=== PATIENT | female | born 1960 | race Caucasian/White ===

== ENCOUNTER 2016-10-02 06:20 | Day surgery (SDC) | payer BC ==
[2016-09-27 10:35] LABS: BASOPHILS 0.6 %; BASOPHILS ABSOLUTE 0.04 10/3/uL (0.0-0.16); EOSINOPHILS 2.9 %; HEMATOCRIT 42.7 % (36.0-48.0); HEMOGLOBIN 14.6 g/dL (12.0-16.0); IMMATURE GRANULOCYTES 0.1 %; IMMATURE GRANULOCYTES ABSOLUTE 0.01 10/3/uL (0.0-0.11); LYMPHOCYTES 26.8 %; LYMPHOCYTES ABSOLUTE 1.83 10/3/uL (0.67-4.30); MEAN CORPUS HGB CONC 34.2 g/dL (32.0-36.0); MEAN CORPUSCULAR HEMOGLOB 33.4 pg (26.0-34.0); MEAN CORPUSCULAR VOLUME 97.7 fL (80-100); MEAN PLATELET VOLUME 10.2 fL (9.2-13.0); MONOCYTES 7.9 %; MONOCYTES ABSOLUTE 0.54 10/3/uL (0.21-1.20); NEUTROPHILS 61.7 %; PLATELET COUNT 263 10/3/uL (150-400); RBC DISTRIBUTION WIDTH 12.8 % (12.0-16.0); RED CELL COUNT 4.37 10/6/uL (4.0-5.6); WHITE BLOOD CELLS 6.8 10/3/uL (4.5-10.5)
[2016-09-27 10:36] LABS: MANUAL DIFF NO %
[2016-09-27 10:46] LABS: BUN (BLOOD UREA NITROGEN) 18 MG/DL (6-23); CALCIUM, SERUM 8.6 MG/DL (8.5-10.4); CHLORIDE, SERUM 108 MMOL/L (96-112); CO2 (CARBON DIOXIDE) 27 MMOL/L (24-34); CREATININE 0.94 MG/DL (0.55-1.02); GFR AFRICAN AMERICAN 78 ML/MIN (>=60); GFR NON AFRICAN AMERICAN 67 ML/MIN (>=60); GLUCOSE, SERUM 102 MG/DL (60-99); SODIUM, SERUM 143 MMOL/L (135-148)
[2016-09-27 10:51] LABS: ASCORBIC ACID (UR NOT ORDER) 40 (NEG); BILIRUBIN, URINE NEGATIVE (NEG); KETONE, URINE TRACE MG/DL (NEG); LEUKOCYTE ESTERASE(NOT OR NEG (NEG); WBC (NOT ORDERED) (RFLEX) 1 (0-5)
--- NOTE | ~2016-10-02 | OP ---
Record Of [facility] [address] [place]. [address] NAME: CANDIDO RENO : 56 STATUS : [facility]#: [id number] AGE: 56 ADM/REG DATE : 10/02/16 MR#: [id number] REPORT SERV DATE: 10/08/16 DICTATED BY: AMOS BANERJEE DATE: 10/08/16 REPORT STATUS : Draft TRANSCRIBED BY: MODL DATE: 10/08/16 DATE OF PROCEDURE: 10/02/2016 PREOPERATIVE DIAGNOSIS: Postmenopausal bleeding. POSTOPERATIVE DIAGNOSIS: Postmenopausal bleeding. PROCEDURE: Hysteroscopy with dilation and curettage. CPT code 78426. ANESTHESIA: General. ESTIMATED BLOOD LOSS: Less than 10 mL. DRAINS: None. FINDINGS: Relatively atrophic endometrium with no dominant masses or evidence of significant hyperplasia. PATHOLOGY: Endometrial curettings. COMPLICATIONS: None. POSTOPERATIVE PLAN: Extubate extubated to PACU. PROCEDURE IN DETAIL: After informed consent was signed, the patient was taken to the operating room, and placed in dorsal supine position, where adequate general anesthesia was administered. She was then placed in dorsal lithotomy position in Raghu stirrups, and prepped and draped in the usual fashion. Exam under anesthesia was performed with normal findings. The uterus was sounded, cervix was dilated, and the hysteroscope was placed through the endocervical canal into the endometrium, where the uterine cavity was distended with appropriate media. Findings as above were noted. The hysteroscope was then removed, and the cervix was dilated further with four quadrant sharp curettings performed. Excellent hemostasis was noted. The patient was placed back in dorsal supine position, awakened, extubated, and sent to the PACU in stable condition. TB/BEN os Banerjee MD / [id number] CC: Amos Banerjee MD Record Of [facility] [address] [place]. [address] NAME: CANDIDO RENO : 56 STATUS : [facility]#: [id number] AGE: 56 ADM/REG DATE : 10/02/16 MR#: [id number] REPORT SERV DATE: 10/08/16 DICTATED BY: AMOS BANERJEE DATE: 10/08/16 REPORT STATUS : Draft TRANSCRIBED BY: MODL DATE: 10/08/16 Tam Eugene III, D.O.
[~2016-10-02 06:20] MED LIST: ALEVE220 MG PO; ESTROGEN PATCH; LIPITOR10 PO; TRAZODONE300 MG PO; VIVLODEX10 MG PO; [UNRECOGNIZED DRUG - REMARK] PO
== END 2016-10-02 10:28 | disposition home or self-care (01) ==
LOC: SDC 06:20
PROVIDERS: Obstetrics & Gynecology Gynecology
PROC: 0UDB8ZX Extraction of Endometrium, Via Natural or Artificial Opening Endoscopic, Diagnostic (ICD-10-PCS; principal; 2016-10-02 07:45)
DX: N95.0 Postmenopausal bleeding (principal); M19.90 Unspecified osteoarthritis, unspecified site
CPT/HCPCS: 71020; 80048; 81001; 85025; 88305; 93005; J0694; J1885; J2250; J2370; J2405; J3010